=== PATIENT | male | born 1925 | race Caucasian/White ===

== ENCOUNTER → 2016-12-06 | Outpatient (CLI) | payer MEDICARE, OTHER ==
[~2016-12-06] MED LIST: BOOST BREEZE237 ML PO; CENTRUM SILVER1 EAC2 PO; COUMADIN **IA2.5 MG PO; IMODIUM2 MG PO; OMNICEF 300MG300 MG PO; RIVASTIGMINE4.5 MG PO
[2016-12-06 08:22] LABS: INR - (THERAPEUTIC) 2.5 (0.9-1.1); PROTIME 27.8 SECONDS (9.6-11.1)
== END | disposition disaster alternative care site (69) ==
PROVIDERS: Family Medicine
DX: I48.91 Unspecified atrial fibrillation (principal)

== ENCOUNTER → 2017-01-03 | Outpatient (CLI) | payer MEDICARE, OTHER ==
[2017-01-03 08:58] LABS: INR - (THERAPEUTIC) 2.83 (0.92-1.07)
== END ==
PROVIDERS: Family Medicine
DX: I48.91 Unspecified atrial fibrillation (principal)

== ENCOUNTER → 2017-01-31 | Outpatient (CLI) | payer MEDICARE, OTHER ==
[2017-01-31 09:35] LABS: INR - (THERAPEUTIC) 2.5 (0.92-1.07); PROTIME 26.5 SECONDS (9.8-11.4)
== END | disposition disaster alternative care site (69) ==
PROVIDERS: Family Medicine
DX: I48.91 Unspecified atrial fibrillation (principal)

== ENCOUNTER 2017-02-25 08:30 | Emergency (ER) | payer MEDICARE, OTHER ==
--- NOTE | ~2017-02-25 | ER ---
PATIENT'S NAME: WASHINGTON MANDUJANO [facility] AGE: 89 Y [address] ROOM: [place] [address] LOCATION: [facility] ADMIT DATE: 02/25/2017 ER/Outpatient Report DISCHARGE DATE: 02/25/2017 FAMILY PHYSICIAN: Physician, Unknown ATTENDING PHYSICIAN: Usman Macias CHIEF COMPLAINT: Fall. HISTORY OF PRESENT ILLNESS: Mr. Mandujano was at his residence today. He reportedly may have fallen. The aide with him thinks maybe he got tangled up in a comforter. He has been noting some pain in his head and neck and left leg. No other acute findings. The patient does have advanced dementia. He is anticoagulated. He has a history of atrial fibrillation. He has chronic renal failure. No obvious injuries disclosed prior to arrival. PAST MEDICAL HISTORY: Documented on the record and reviewed by me. SOCIAL HISTORY: Documented on the record and reviewed by me. MEDICATIONS: Documented on the record and reviewed by me. ALLERGIES: DOCUMENTED ON THE RECORD AND REVIEWED BY ME. REVIEW OF SYSTEMS: All systems were reviewed and negative as possible based on the patient's mental status and collateral information except as noted in the HPI. PHYSICAL EXAMINATION: VITAL SIGNS: Blood pressure 136/81, pulse 71, respiratory rate 16, temperature 98.5, SpO2 is 97% on room air. Pain 0/10. GENERAL: An age-appropriate male, recumbent on the exam table, in no obvious pain or distress. NEURO: The patient is awake. He is interactive. He is slightly hard of hearing. He answers questions, slightly appropriately occasionally. He is confused. He is able to follow commands in extremities. HEENT: Normocephalic, atraumatic. No palpable defects. Eyes are PERRL. Oropharynx is clear. NECK: Supple. Trachea is midline. PATIENT'S NAME: WASHINGTON MANDUJANO [facility] AGE: 89 Y [address] ROOM: [place] [address] LOCATION: [facility] ADMIT DATE: 02/25/2017 ER/Outpatient Report DISCHARGE DATE: 02/25/2017 FAMILY PHYSICIAN: Physician, Unknown ATTENDING PHYSICIAN: Usman Macias CHEST: Heart is regular rate and rhythm with no obvious murmurs. LUNGS: Clear to auscultation bilateral. No rhonchi, wheezes, or rales. ABDOMEN: Soft, nontender, and nondistended. No rebound or guarding. BACK: Normal to inspection and palpation. No CVA tenderness or spinal tenderness. EXTREMITIES: The left thigh is slightly tender to palpation. The other extremities are unremarkable. SKIN: The skin appears to be clean and intact. No obvious rashes or breakdown. LABORATORY DATA AND X-RAYS: Head CT and C-spine CT unremarkable per Radiology. Labs: CMS with no electrolyte abnormalities. BUN and creatinine of 34 and 2.0 respectively. Troponin is below detectable threshold. CBC without appreciable abnormality other than platelets of 139. INR is 2.44. EKG reveals likely atrial fibrillation. No signs of acute ischemia. No comparison available. Plain films of the pelvis and left femur unremarkable per my review. IMPRESSION: Mechanical fall. EMERGENCY DEPARTMENT COURSE: The patient was seen and evaluated as above. No injuries identified. Renal function at baseline. The patient is to follow up with PCP as needed. We will need to make this appointment. The patient discharged in good condition, back to his living facility. MD MOI TERRY/brooke /[id number] d: 02/25/174 t: 03/11/17 0650, OUTPATIENT REPORT
[~2017-02-25 08:30] MED LIST changes: -BOOST BREEZE237 ML PO; -IMODIUM2 MG PO; -OMNICEF 300MG300 MG PO
[2017-02-25 09:04] LABS: HEMATOCRIT 35.2 % (33.0-50.0); HEMOGLOBIN 11.2 g/dL (11.0-16.0); MCH 29.8 pg (27.0-34.0); MCHC 31.8 gm/dL (32.0-36.5); MCV 93.6 fl (83.0-98.0); MPV 11.7 fl (9.4-12.4); PLATELET COUNT 139 K/uL (150-450); RBC 3.76 M/uL (3.50-5.50); RDW-CV 16.6 % (11.9-14.6); WBC 5.4 K/uL (4.0-11.0)
[2017-02-25 09:12] LABS: INR - (THERAPEUTIC) 2.44 (0.92-1.07); PROTIME 25.9 SECONDS (9.8-11.4); PTT 39 SECONDS (25-32)
[2017-02-25 09:24] LABS: ALBUMIN 3.9 gm/dL (3.5-5.0); ALK PHOS 72 IU/L (33-138); ALT 19 IU/L (12-78); AST 27 IU/L (10-40); BLOOD UREA NITROGEN 34 mg/dL (6-24); CALCIUM 8.7 mg/dL (8.5-10.5); CHLORIDE 109 mMol/L (96-110); CO2 26 mMol/L (22-32); ESTIMATED GFR (MDRD EQUATION) 32; SODIUM 142 mMol/L (135-145); TOTAL BILIRUBIN 0.6 mg/dL (0.0-1.5)
[2017-02-25 10:01] LABS: ABSOLUTE NEUTROPHIL CT (ANC) 2.8 K/uL (1.4-9.0); BANDED NEUTROPHIL # 0.5 K/uL (0.0-0.1); BANDED NEUTROPHILS % 9 %; LYMPHOCYTE # 1.3 K/uL (0.8-4.0); LYMPHOCYTE % 24 %; MONOCYTE # 1.5 K/uL (0.0-1.0); SEGMENTED NEUTROPHIL # 2.3 K/uL (1.4-9.0); SEGMENTED NEUTROPHIL % 42 %
[2017-02-25 10:35] LABS: BILIRUBIN URINE NEGATIVE (NEGATIVE); BLOOD URINE 10 /UL (NEGATIVE); COLOR URINE YELLOW (YELLOW); GLUCOSE URINE NEGATIVE (NEGATIVE); KETONE URINE NEGATIVE (NEGATIVE); LEUKOCYTES URINE NEGATIVE /UL (NEGATIVE); NITRITE URINE NEGATIVE (NEGATIVE); PROTEIN URINE 15 mg/dL (NEGATIVE); TURBIDITY URINE CLEAR (CLEAR); UROBILINOGEN URINE NORMAL (NORMAL)
[2017-02-25 11:04] LABS: BACTERIA URINE RARE (NEGATIVE); EPITHELIAL URINE 0-2 #/HPF (NEGATIVE); MUCUS URINE 1+ (NEGATIVE); WBC URINE 0-2 #/HPF (NEGATIVE)
== END 2017-02-25 10:04 | disposition disaster alternative care site (69) ==
LOC: GACC 08:30
PROVIDERS: Emergency Medicine
DX: M79.652 Pain in left thigh (principal); M54.2 Cervicalgia; R51 Headache; I10 Essential (primary) hypertension; I73.9 Peripheral vascular disease, unspecified; I48.91 Unspecified atrial fibrillation; F02.80 Dementia in other diseases classified elsewhere, unspecified severity, without behavioral disturbance, psychotic disturbance, mood disturbance, and anxiety; G30.9 Alzheimer's disease, unspecified; Z79.01 Long term (current) use of anticoagulants; Z79.899 Other long term (current) drug therapy; Z90.89 Acquired absence of other organs; Z90.49 Acquired absence of other specified parts of digestive tract; Z88.5 Allergy status to narcotic agent

== ENCOUNTER → 2017-02-25 | Outpatient (CLI) | payer MEDICARE, OTHER | END | disposition disaster alternative care site (69) | LOC: GAMB 08:16 | DX: R53.1 Weakness (principal); M54.2 Cervicalgia; M25.562 Pain in left knee; R51 Headache | CPT/HCPCS: A0425; A0429 ==

== ENCOUNTER → 2017-03-13 | Outpatient (CLI) | payer MEDICARE, OTHER ==
[~2017-03-13] MED LIST changes: +BOOST BREEZE237 ML PO; +IMODIUM2 MG PO; +OMNICEF 300MG300 MG PO
[2017-03-13 07:59] LABS: HEMATOCRIT 32.3 % (33.0-50.0); HEMOGLOBIN 10.4 g/dL (11.0-16.0); MCH 30.7 pg (27.0-34.0); MCHC 32.2 gm/dL (32.0-36.5); MCV 95.3 fl (83.0-98.0); MPV 12.2 fl (9.4-12.4); RBC 3.39 M/uL (3.50-5.50); RDW-CV 16.4 % (11.9-14.6); WBC 3.8 K/uL (4.0-11.0)
[2017-03-13 08:00] LABS: PLATELET COUNT 106 K/uL (150-450)
[2017-03-13 08:09] LABS: INR - (THERAPEUTIC) 2.43 (0.92-1.07); PROTIME 25.7 SECONDS (9.8-11.4)
[2017-03-13 08:23] LABS: ALBUMIN 3.5 gm/dL (3.5-5.0); ANION GAP 12.5 (10.0-19.0); CALCIUM 8.2 mg/dL (8.5-10.5); CREATININE 1.6 mg/dL (0.6-1.3); POTASSIUM 4.5 mMol/L (3.7-5.1); TOTAL PROTEIN 6.3 g/dL (6.0-8.4)
[2017-03-13 08:27] LABS: TOTAL BILIRUBIN 0.4 mg/dL (0.0-1.5)
[2017-03-13 08:37] LABS: ABSOLUTE NEUTROPHIL CT (ANC) 2.1 K/uL (1.4-9.0); BANDED NEUTROPHIL # 0.2 K/uL (0.0-0.1); BANDED NEUTROPHILS % 5 %; LYMPHOCYTE # 1.2 K/uL (0.8-4.0); LYMPHOCYTE % 32 %; MONOCYTE # 0.5 K/uL (0.0-1.0); SEGMENTED NEUTROPHIL # 1.9 K/uL (1.4-9.0); SEGMENTED NEUTROPHIL % 49 %
== END | disposition disaster alternative care site (69) ==
PROVIDERS: Family Medicine
DX: I48.91 Unspecified atrial fibrillation (principal)

== ENCOUNTER → 2017-04-11 | Outpatient (CLI) | payer MEDICARE, OTHER ==
[2017-04-11 09:16] LABS: INR - (THERAPEUTIC) 3.46 (0.92-1.07); PROTIME 36.8 SECONDS (9.8-11.4)
== END | disposition disaster alternative care site (69) ==
PROVIDERS: Family Medicine
DX: I48.91 Unspecified atrial fibrillation (principal)

== ENCOUNTER 2017-05-11 13:28 | Inpatient (IN) | payer MEDICARE, OTHER ==
[~2017-05-11] VITALS: Ht 172.7 cm; Wt 56.0 kg
--- NOTE | ~2017-05-11 | CON ---
PATIENT'S NAME: WASHINGTON SOLIS [facility] AGE: 89 Y [address] ROOM: [id number] [place], [place] [address] LOCATION: [facility]ICU ADMIT DATE: 05/11/2017 Consultation DISCHARGE DATE: FAMILY PHYSICIAN: Omar Hicks MD ATTENDING PHYSICIAN: BLANCA BROWNLEE DATE OF CONSULTATION: 05/11/2017 REFERRING PHYSICIAN: LYDIA COLLINS MD HISTORY OF PRESENT ILLNESS: Dr. Leonard has requested that I provide an inpatient consultation on this 89- year-old male, assisted living facility resident, who presented to the [facility] Emergency Room today with a chief complaint of left hip pain after he fell on his left side. The patient has advanced dementia, and is unable to recall the circumstances of the fall. He denies pain elsewhere. He denies history of pre-existing left hip pain. His daughter states that she has noticed no discomfort elsewhere, and that she is not aware of previous left hip pain. His daughter, Spring, is present, and she is his power of real estate attorney. Her cell phone number is [phone]. Her son, Daryl, is an director of physical education in [place]. His cell phone is [phone]. MEDICATIONS ON ADMISSION: 1. Coumadin. 2. Multivitamin. 3. Exelon. 4. Omnicef. 5. Imodium. ALLERGIES: TRAMADOL. ACTIVE MEDICAL PROBLEMS: 1. Atrial fibrillation. 2. Dementia. PHYSICAL EXAMINATION: GENERAL: The patient is alert and confused. He responds to some commands. He is disoriented to place and time. LUNGS: Respiratory rate is 16. Respiratory sounds are slightly coarse. Respirations are nonlabored. EXTREMITIES: There is no tenderness in either upper extremity. There is pain with passive range of motion of the left hip. The left leg is shortened and externally rotated versus the right. There is no tenderness at either knee. There is no pain with passive range of motion of the right hip. There is no peripheral edema in either lower extremity. He is able to actively dorsiflex PATIENT'S NAME: WASHINGTON SOLIS [facility] AGE: 89 Y [address] ROOM: [id number] [place], [place] [address] LOCATION: GICU ADMIT DATE: 05/11/2017 Consultation DISCHARGE DATE: FAMILY PHYSICIAN: Omar Hicks MD ATTENDING PHYSICIAN: BLANCA BROWNLEE and plantar flex his left ankle against gravity. There is good capillary refill at the left toes. RADIOGRAPHS: Left hip radiographs demonstrate what appears to be a basicervical fracture. I have ordered repeat radiographs with traction and internal rotation. These are pending. IMPRESSION: 1. Left hip basicervical-intertrochanteric fracture. 2. Dementia. 3. Atrial fibrillation (presently anticoagulated). PLAN: The patient has been placed at bedrest. Mechanical DVT prophylaxis and incentive spirometry have been initiated. The Internal Medicine team has been consulted for preoperative medical optimization and perioperative medical management. Vitamin K has been administered, and a repeat prothrombin time has been scheduled for tomorrow morning. Provided the pending repeat radiographs confirm a basicervical- intertrochanteric fracture, I have recommended that we proceed with open reduction and internal fixation. The patient's daughter understands that it is conceivable that we will proceed with hemiarthroplasty instead. We have discussed technical aspects of surgery as well as risks and limitations thereof. We have specifically discussed the potential for infection, deep venous thrombosis, pulmonary embolism, decubitus ulcer formation, pneumonia, neurovascular complications, infection, malunion, nonunion, and potential need for further surgery (including the potential need for conversion to hemiarthroplasty). She understands there is an outside chance that we will proceed directly with hemiarthroplasty, under which circumstances there would be a potential for leg length discrepancy and dislocation. Surgery is tentatively scheduled for tomorrow morning, but this is predicated on medical clearance, operating room availability, and adequate reversal of the patient's anticoagulated status. All the patient's daughter's questions and concerns have been answered to her satisfaction. PATIENT'S NAME: WASHINGTON SOLIS [facility] AGE: 89 Y [address] ROOM: [place] [address] LOCATION: [facility] ADMIT DATE: 05/11/2017 Consultation DISCHARGE DATE: FAMILY PHYSICIAN: Omar Hicks MD ATTENDING PHYSICIAN: BLANCA BROWNLEE MD VERENICE CALDERON/brooke /[id number] CC: Landon Leonard MD d: 05/12/17 0123 t: 05/13/17 1320, CONSULTATION REPORT
--- NOTE | ~2017-05-11 | DS ---
PATIENT'S NAME: WASHINGTON MANDUJANO [facility] AGE: 89 Y [address] ROOM: [place] [address] LOCATION: [facility] ADMIT DATE: 05/11/2017 Discharge Summary DISCHARGE DATE: 05/30/2017 FAMILY PHYSICIAN: Omar Hicks MD ATTENDING PHYSICIAN: Danny Martines PRINCIPAL DISCHARGE DIAGNOSIS: Left displaced femoral neck fracture. SECONDARY DIAGNOSES: 1. Dementia, Alzheimer's. 2. Atrial fibrillation, chronic, with episodes of rapid ventricular response. 3. Chronic kidney disease, stage 3 to 4. 4. Benign prostatic hypertrophy with urinary retention and requiring indwelling Treviño at the time of discharge. 5. Hypertension. 6. Acute delirium after morphine. 7. Anorexia. 8. Urinary tract infection with Pseudomonas aeruginosa. 9. Aspiration pneumonia. 10. Hearing impairment. 11. Protein-calorie malnutrition. 12. Hypernatremia. 13. Acute anemia of blood loss following surgery, likely, also anemia of chronic disease. 14. Dysphagia with periods of feedings with Dobbhoff tube. 15. Hypophosphatemia. 16. Congestive heart failure, acute exacerbation. 17. Hyperkalemia. CONSULTATIONS: 1. Dr. Addison, Orthopedics. 2. Cardiology, Dr. Sky, for atrial fibrillation. PROCEDURES: Left hip hemiarthroplasty on 05/13/2017. BRIEF SUMMARY: Mr. Mandujano is an 89-year-old gentleman who was living at a nursing facility when he sustained a ground level fall on the day of admission and hurt his hip and also hit his head. He was initially admitted to Dr. Landon Leonard and then transferred to the Hospitalist Service. On admission, a left hip fracture was identified; CT of the head was negative for acute hematoma or intracranial changes. Dr. Sky was consulted for cardiac clearance preoperatively. At that time, the patient was oriented only to himself. He did complain of hip pain, but not shortness of breath, and PATIENT'S NAME: WASHINGTON MANDUJANO [facility] AGE: 89 Y [address] ROOM: [place] [address] LOCATION: [facility] ADMIT DATE: 05/11/2017 Discharge Summary DISCHARGE DATE: 05/30/2017 FAMILY PHYSICIAN: Omar Hicks MD ATTENDING PHYSICIAN: Danny Martines according to the family, he was not having any paroxysmal nocturnal dyspnea, orthopnea, or leg swelling. He was treated with IV Lasix at prior to surgery. The patient actually tolerated surgery well. His postoperative period was complicated by his dysphagia difficulty getting him to take enough to eat. A Dobbhoff was placed when he became suddenly less able to eat; and around the same time, he started coughing, his urine became very dark. INR was elevated. Urinalysis showed white cells in addition to the red cells and he became febrile. He was started on antibiotics for suspected aspiration pneumonia. Urinalysis and culture positive showed Pseudomonas, which was susceptible to Levaquin, eventually, his antibiotics of Zosyn and Clinda were narrowed to Levaquin, which will cover both. He will complete a course of Levaquin with 1 dose p.o. pending tomorrow after discharge. The patient was agitated with his Dobbhoff tube. Family requested Palliative Care consult and they have chosen to have modified palliative approach with continuing his treatments, but allowing him to eat and so far the patient appears very comfortable with this and the last Speech evaluation did not show any overt signs and symptoms of aspiration with nectar-thick liquid. He will be discharged on nectar-thick liquid and pureed diet. Laboratory data at the time of discharge CBC shows white blood cell count 8, hemoglobin of 8, and platelets 232. Iron is 16, TIBC is 180, and iron saturation is 9. Sodium 148, potassium 5.2, chloride 116, CO2 26, glucose 112, creatinine 2.2, BUN 38, phosphorus is 4.8, albumin 2.6, and eGFR is 26. PT today is 2, ferritin is 504 from the 13th. A repeat urine culture was done on the and is negative at the final. The patient developed urinary retention after his Treviño was first discontinued postoperatively. He did not respond well to Flomax and was started on Cardura. We are going to leave the Treviño in and see if he can have a voiding trial sometime later, according to Dr. Hicks. INSTRUCTIONS AT DISCHARGE: 1. Diet: Pureed with nectar thick liquids with specific feeding instructions in the discharge orders. 2. Activity: Physical therapy, speech therapy, occupational therapy, and they aid pillow between his legs for 6 weeks postop. 3. Follow up with Dr. Hicks to manage his INR and dose his Coumadin. He should have a basic metabolic panel and an INR on the 31 of May. Palliative Care is to follow up with him at [place] and he should see Dr. Addison as needed. Dr. Addison did see him today at the hospital according to the RN. PATIENT'S NAME: WASHINGTON MANDUJANO [facility] AGE: 89 Y [address] ROOM: [address] [address] LOC[facility] ADMIT DATE: 05/11/2017 Discharge Summary DISCHARGE DATE: 05/30/2017 FAMILY PHYSICIAN: Omar Hicks MD ATTENDING PHYSICIAN: Danny Martines MEDICATIONS AT THE TIME OF DISCHARGE: 1. Prevacid 30 mg q.h.s. 2. Tylenol 500 mg q.i.d. 3. Zebeta 2.5 mg p.o. daily. 4. Calcium carbonate 500 mg b.i.d. 5. Vitamin D 400 units b.i.d. 6. Cardura 1 mg at h.s. 7. Ferrous sulfate 325 mg p.o. b.i.d. 8. Lactinex 1 b.i.d. 9. Coumadin as per his INR, he has been on 3 daily here. 10. Multiple vitamin p.o. daily. 11. Bisacodyl rectal suppository p.r.n. constipation. 12. Colace 100 mg p.o. b.i.d. 13. Imodium p.r.n. 14. Milk of mag p.r.n. constipation. 15. Percocet 1 to 2 tabs q.6 p.r.n. 16. Levaquin 750 mg p.o. once on 05/31/2017. CONDITION AT DISCHARGE: Fair. Greater than 30 minutes was spent in the discharge process. MARITZA PLUMMER MD LM/brooke /[id number] d: t: 05/31/17 1109, DISCHARGE SUMMARY
--- NOTE | ~2017-05-11 | HP ---
PATIENT'S NAME: WASHINGTON SOLIS [facility] AGE: 89 Y [address] ROOM: [place] [address] LOCATION: GICU ADMIT DATE: 05/11/2017 History & Physical DISCHARGE DATE: FAMILY PHYSICIAN: Omar Hicks MD ATTENDING PHYSICIAN: BLANCA BROWNLEE DATE OF SERVICE: CHIEF COMPLAINT: Fall leading to left hip fracture. HISTORY OF PRESENT ILLNESS: An 89-year-old gentleman with a past medical history of Alzheimer dementia; chronic kidney disease, stage 3; atrial fibrillation, on long-term anticoagulation; and hypertension, who is a resident of a nursing facility, sustained a ground level fall today after lunch hitting his head as well. He started to experience left hip pain immediately after the fall. He was admitted to the [facility] under Dr. Edward Leonard and imaging was done, which did show left hip fracture. CT scan of the head was also done, which did not reveal any acute hematoma or any acute intracranial changes. Cardiology was consulted for preop clearance as well as for atrial fibrillation and then care was transferred to the hospitalist team. On my encounter, child is acutely delirious, just oriented to himself. On inquiry, he complained of left hip pain, does not complain of any shortness of breath, does not complain of any headache, does not complain of any abdominal pain at this point. Per daughter, in the recent days, he did not complain of any PND, orthopnea, or leg swelling. REVIEW OF SYSTEMS: All other systems reviewed were negative except what is mentioned in the HPI. PAST MEDICAL HISTORY: Alzheimer dementia, hypertension, atrial fibrillation, congestive heart failure, and pancreatitis. MEDICATIONS: Being reconciled right now. ALLERGIES: THE PATIENT IS ALLERGIC TO TRAMADOL. FAMILY HISTORY: There is no family history of premature coronary artery disease. SOCIAL HISTORY: PATIENT'S NAME: WASHINGTON SOLIS [facility] AGE: 89 Y [address] ROOM: [place] [address] LOCATION: [facility] ADMIT DATE: 05/11/2017 History & Physical DISCHARGE DATE: FAMILY PHYSICIAN: Omar Hicks MD ATTENDING PHYSICIAN: BLANCA BROWNLEE Quit smoking long time ago. Resident of a nursing facility. PHYSICAL EXAMINATION: VITAL SIGNS: Vitals were reviewed with pulse in the 100s, blood pressure 148/86, and temperature 98.0. GENERAL: Grossly encephalopathic. Alert and oriented only to himself. HEAD: Superficial bruise on the right eyebrow. Otherwise atraumatic. Eyes nonicteric, no pallor. Oropharynx, moist mucous membranes. CARDIOVASCULAR: Variable S1 and S2, irregular. LUNGS: Bilateral basal crackles. ABDOMEN: Soft, nontender, nondistended. Bowel sounds present. EXTREMITIES: No clubbing, cyanosis, or edema. PSYCHIATRIC: Cannot be assessed at this point. NEURO: Grossly intact. No motor sensory deficit noted. MUSCULOSKELETAL: Left hip point tenderness noted. ENDOCRINE: No thyromegaly or myxedema noted. LABORATORY DATA: Lab work done today in the hospital was significant for hemoglobin of 10, BUN 29, creatinine of 2.0. Phosphorus was 1.9. INR was found to be 2.5. EGFR 29. ASSESSMENT: 1. Left hip fracture. 2. Atrial fibrillation with rapid ventricular rate. 3. Congestive heart failure, acute exacerbation. 4. Alzheimer dementia. 5. Acute delirium on dementia. 6. Hypophosphatemia. PLAN: The patient has been admitted. Cardiology has been consulted for atrial fibrillation and preop evaluation. We will defer that to them. They have started Lasix and Cardizem drip. Lexiscan has been ordered for the morning. We will keep eye on the electrolytes during night. Pain control per Orthopedics. I will use some Seroquel to decrease his encephalopathy. The patient is DNR, DNI. Vitamin K has been started by the Cardiology. MD DEANDRA GAVIRIA/brooke PATIENT'S NAME: WASHINGTON SOLIS [facility] AGE: 89 Y [address] ROOM: [id number] [place] [address] LOCATION: [facility] ADMIT DATE: 05/11/2017 History & Physical DISCHARGE DATE: FAMILY PHYSICIAN: Omar Hicks MD ATTENDING PHYSICIAN: BLANCA BROWNLEE /[id number] T: [id number] HISTORY & PHYSICAL
--- NOTE | ~2017-05-11 | CON ---
PATIENT'S NAME: WASHINGTON MANDUJANO [facility] AGE: 89 Y [address] ROOM: [place] [address] LOCATION: GICU ADMIT DATE: 05/11/2017 Consultation DISCHARGE DATE: FAMILY PHYSICIAN: Omar Hicks MD ATTENDING PHYSICIAN: BLANCA BROWNLEE DATE OF CONSULTATION: 05/11/2017 REFERRING PHYSICIAN: LYDIA COLLINS MD Dear Dr. Leonard: Thank you for asking me to see Mr. Mandujano who is an 89-year-old male patient who had an accidental fall at [facility], which is assisted living facility. This happened around lunch time, and he had left hip pain and was brought to the emergency room. I am asked to see regarding cardiac clearance. His chest x-ray shows some congestive heart failure. His INR is elevated because of treatment with Coumadin for paroxysmal atrial fibrillation. The patient gets physical therapy 1-2 times a week for the past month for mostly balance. He walks with a walker and walks at the most about 50 feet or less. He has significant dementia and his daughter is the one he gives most of the history. There has never been any symptoms with chest pains or shortness of breath. He has been in functional class 2-3 with no paroxysmal nocturnal dyspnea or orthopnea. There has been no lightheadedness, dizziness, syncope, presyncope, or palpitation. He has some ankle swelling. There is no prior history of hypertension or diabetes. His cholesterol is not known to be elevated. He has quit smoking a number of years ago and there is no family history of premature coronary artery disease. There is no prior history of TN or angina or nitroglycerin use. He denies rheumatic fever, heart murmur, heart failure, until now. He has history of paroxysmal atrial fibrillation, for which he is on Coumadin therapy. MEDICATIONS: Cefdinir 300 mg twice a day, Boost liquid, loperamide 2 mg as needed, multivitamin, Exelon cap 4.5 mg a day, and warfarin. ALLERGIES: TRAMADOL. PAST MEDICAL HISTORY: PATIENT'S NAME: WASHINGTON MANDUJANO [facility] AGE: 89 Y [address] ROOM: [place] [address] LOCATION: GICU ADMIT DATE: 05/11/2017 Consultation DISCHARGE DATE: FAMILY PHYSICIAN: Omar Hicks MD ATTENDING PHYSICIAN: BLANCA BROWNLEE 1. Dementia. 2. Appendectomy. 3. Cataract surgery. 4. History of pancreatitis 10 years ago. 5. ERCP x4. 6. Spinal fracture years back. SOCIAL HISTORY: The patient lives at [facility]. He denies abusing alcohol. His appetite has been reasonable. His weight is down by 10 pounds in the last year. Sleep is fair. FAMILY HISTORY: No premature coronary artery disease. REVIEW OF SYSTEMS: A 12-point review of systems revealed the following positives: 1. TIA which is questionable. 2. History of cataract surgery. 3. Detached retina. 4. Hardness of hearing. 5. Kidney problem, the nature of which is unclear. 6. Benign prostatic hypertrophy versus cancer. PHYSICAL EXAMINATION: VITAL SIGNS: On examination, his blood pressure is 180/80, heart rate is in the 60s and irregular, respirations 18, afebrile. HEENT: Normal. NECK: Supple. No JVD, thyromegaly, lymphadenopathy, or carotid bruit. HEART: PMI is not well located. First and second heart sounds are irregular. There are no added sounds or murmurs. CHEST: Clear to auscultation other than basal crackles. ABDOMEN: Soft and nontender. EXTREMITIES: Reveal no edema. CENTRAL NERVOUS SYSTEM: Intact. ASSESSMENT: 1. Left hip fracture by accidental fall for cardiac clearance. 2. The patient currently going to proceed with an urgent intermediate risk surgery. He is asymptomatic from the heart standpoint, but his functional capacity is less than 4 METS. RECOMMENDATION: 1. We will give him some IV Lasix. 2. We will try to reverse his Coumadin level. PATIENT'S NAME: WASHINGTON MANDUJANO [facility] AGE: 89 Y [address] ROOM: [place] [address] LOCATION: [facility] ADMIT DATE: 05/11/2017 Consultation DISCHARGE DATE: FAMILY PHYSICIAN: Omar Hicks MD ATTENDING PHYSICIAN: BLANCA BROWNLEE 3. Rule out myocardial infarction. 4. Echocardiogram. 5. Lexiscan Cardiolite study first thing in the morning and follow up after that. Hopefully, the results will be available before he goes in for his surgery. Again, I appreciate this opportunity to participate in the care of Mr. Mandujano. MD SHAINA FRANCO/brooke /[id number] d: 05/12/17 0020 t: 05/29/17 1726, CONSULTATION REPORT
--- NOTE | ~2017-05-11 | ER ---
[facility] AGE: 89 Y [address] ROOM: [place] [address] LOCATION: [facility] ADMIT DATE: 05/11/2017 ER/Outpatient Report DISCHARGE DATE: FAMILY PHYSICIAN: Omar Hicks MD ATTENDING PHYSICIAN: BLANCA BROWNLEE TIME OF ARRIVAL: 1328 hours. TIME OF EVALUATION: 1330 hours. CHIEF COMPLAINT: Left hip pain. HISTORY OF PRESENT ILLNESS: The patient is an 89-year-old male who presents to the emergency department today with chief complaint of left hip pain. The patient is a half-way resident. He does have a history of advanced dementia. He was getting up from the table when he lost his balance and fell, landed on his left hip. He has been unable to walk since. It is a sharp pain, worse with movement, currently 3/10 in severity. There is no reported head injury or loss of consciousness. PAST MEDICAL HISTORY: Chronic atrial fibrillation, peripheral vascular disease, hard of hearing, advanced dementia, stage III chronic renal disease. PAST SURGICAL HISTORY: Tonsils and adenoids, cholecystectomy, SOCIAL HISTORY: The patient denies any tobacco, alcohol, or illicit drug use. ALLERGIES: TRAMADOL. MEDICATIONS: Please see list. PRIMARY CARE DOCTOR: Dr. Hicks. REVIEW OF SYSTEMS: All systems are reviewed by myself and negative with the exception of those PAT[facility]'S [facility]: [facility] AGE: 89 Y [address] ROOM: [place] [address] LOCATION: [facility] ADMIT DATE: 05/11/2017 ER/Outpatient Report DISCHARGE DATE: FAMILY PHYSICIAN: Omar Hicks MD ATTENDING PHYSICIAN: BLANCA BROWNLEE discussed in HPI and past medical history. PHYSICAL EXAMINATION: VITAL SIGNS: Weight 57.8 kg, blood pressure 138/70, pulse 74, respiratory rate 18, temperature 98.3, oxygen saturation 99% on room air. GENERAL: The patient is an 89-year-old male, who appears stated age, in acute discomfort secondary to left hip pain. HEENT. Head: Normocephalic, atraumatic. Pupils are equal, round, and reactive to light. NECK: Supple. There is no nuchal rigidity. CARDIOVASCULAR: Regular rate and rhythm. No murmurs, rubs, or gallops. LUNGS: Clear to auscultation bilaterally. No wheezes, rales, or rhonchi. ABDOMEN: Soft, nontender, and nondistended. No rebound, rigidity, or guarding. MUSCULOSKELETAL: The patient has tenderness to palpation of the left hip. He is neurovascularly intact distally with 2/4 DP and PT pulses. Sensation is intact. NEUROLOGICAL: GCS 14. He is alert and oriented to person, not place, not time, not situation. SKIN: The patient does have a superficial skin tear to the left elbow. DIAGNOSTIC DATA: Labs and x-rays are obtained. An x-ray of the left hip is obtained, does appear to be a fracture through the intertrochanteric fracture of the left hip. CT scan of the brain is obtained, shows atrophy. C-spine shows no acute fracture. There are degenerative changes, which are stable. CT scan of the pelvis shows proximal left comminuted femoral base of the neck fracture. CBC is unremarkable except for hemoglobin 10.2, hematocrit 31.5, PTT is 40, PT is 27.1, INR is 2.56. CMP is unremarkable except for BUN 29, creatinine 2.0, phosphorus 1.9. IMPRESSION: 1. Ground-level fall with left femoral neck fracture, comminuted, closed. 2. Advanced dementia. 3. Chronic atrial fibrillation, on chronic anticoagulation. 4. Initial visit. EMERGENCY DEPARTMENT COURSE: The patient was brought back to the examination room. Seen and evaluated by myself. An IV is established. Laboratory analysis and imaging are obtained as described above. The patient is given multiple aliquots of fentanyl 25 mcg IV for pain. I have discussed the case with Dr. Wiggins who is on-call for trauma call. He has requested the CT imaging of the left hip. This is obtained. I have discussed the case with Dr. Landon Leonard, who is on-call for the patient's primary care doctor, Dr. Hicks. He has requested Cardiology PATIENT'S NAME: WASHINGTON SOLIS [facility] AGE: 89 Y [address] ROOM: [address] [address] LOCATION: [facility] ADMIT DATE: 05/11/2017 ER/Outpatient Report DISCHARGE DATE: FAMILY PHYSICIAN: Omar Hicks MD ATTENDING PHYSICIAN: BLANCA BROWNLEE. I have contacted Dr. Sky with Cardiology. He will see and evaluate the patient prior to surgery. DISPOSITION: The patient is admitted under the care of Dr. Horacio Almaguer in stable condition. DO JHON KAUFMAN/brooke /[id number] d: 05/11/172230 t: 05/12/17 0830, OUTPATIENT REPORT
--- NOTE | ~2017-05-11 | OR ---
PATIENT'S NAME: [facility] AGE: 89 Y [address] ROOM: [place] [address] LOCATION: [facility] ADMIT DATE: 05/11/2017 OR/Procedure Report DISCHARGE DATE: FAMILY PHYSICIAN: Omar Hicks MD ATTENDING PHYSICIAN: BLANCA BROWNLEE SURGEON: Pete Addison MD ORDER DETAILER: Temo Romero PA-C. DATE OF PROCEDURE: 05/13/2017 PREOPERATIVE DIAGNOSIS: Left displaced femoral neck fracture with extension into the sub-trochanter. POSTOPERATIVE DIAGNOSIS: Left displaced femoral neck fracture with extension into the sub-trochanter. PROCEDURE: Left hip hemiarthroplasty. ANESTHESIA: General anesthesia. FLUIDS: Crystalloids 1200 mL. ESTIMATED BLOOD LOSS: 60 mL. SPECIMEN: None. COMPLICATIONS: None. DISPOSITION: Stable in PACU. COUNTS: All counts correct. IMPLANTS: Include Mallorie Accolade II, size 7, standard offset stem with size standard 28 mm plus 0 femoral head and size 58 bipolar component. INDICATION: Mr. Mandujano is a pleasant 89-year-old gentleman who sustained a fall and the noted fracture above. The risks, benefits, and alternatives of pursuing a surgical intervention were discussed with the patient in detail. Anesthesia was consulted for their perioperative evaluation of the patient. The patient and the patient's daughter elected to proceed with surgery. I marked the patient's left hip indicating the correct surgical site. DESCRIPTION OF PROCEDURE: The patient was brought from the holding area to the operating room. A time-out was performed. General endotracheal anesthesia was administered. The patient was positioned and prepped and draped in a sterile fashion. PATIENT'S NAME: [facility] AGE: 89 Y [address] ROOM: [place] [address] LOCATION: [facility] ADMIT DATE: 05/11/2017 OR/Procedure Report DISCHARGE DATE: FAMILY PHYSICIAN: Omar Hicks MD ATTENDING PHYSICIAN: BLANCA BROWNLEE I turned my attention to the left hip. A time-out was performed. Perioperative antibiotics were administered for prophylaxis. Tranexamic acid was administered to assist with blood loss. I began with a posterior incision on the left hip. A 15 blade knife was used through the skin, subcutaneous tissue, fascia, down to bone. I excised the greater trochanteric bursa. I used a Bovie electrocautery device to remove the short external rotators and posterior capsule from the hip and tagged it with an Ethibond suture. I then used an oscillating saw to make my femoral neck cut. I then used a corkscrew to remove the femoral head and measured it. I then broached up to an adequate size to fill the femoral canal. I removed the trial component tree and installed the final bipolar component in the femoral canal, placed femoral head and bipolar stem. The hip was then reduced. It was brought through range of motion and deemed stable. I achieved full extension and hip flexion to 120 degrees and approximately 40 degrees of internal rotation prior to surgical dislocation. I assessed the limb length and found it to be stable and out to length. The wound was then copiously irrigated with normal sterile saline solution. The short external rotators were reattached to the posterior aspect of the greater trochanter through bony tunnels. The hip was closed in layers using a StrataFix suture followed by 0 Vicryl and 2-0 Vicryl suture to approximate the skin. A Prineo was used to approximate the skin. A Mepilex dressing was placed over the hip. The patient was then transferred from the operating room table onto the stretcher and extubated. An abduction pillow was placed between the legs. He was brought to recovery room in stable condition. There were no intraoperative complications noted. Of note, my PA, Temo Romero PA-C, played an integral role in the intraoperative care of this patient. This included preoperative positioning, intraoperative expert retraction, and closing and dressing functions. IMPRESSION: The patient is status post the noted procedures above. PLAN: The patient will be weightbearing as tolerated with hip flex precautions on the left lower extremity to 90 degrees. Postoperative pain control will be in the form of Percocet and IV morphine as needed for pain. DVT prophylaxis will be in the form of Lovenox. The Hospitalist Team will continue to manage the patient's concomitant medical comorbidities. Physical Therapy and Occupational Therapy will be consulted for early ambulation and PATIENT'S NAME: [facility] AGE: 89 Y [address] ROOM: [place] [address] LOCATION: [facility] ADMIT DATE: 05/11/2017 OR/Procedure Report DISCHARGE DATE: FAMILY PHYSICIAN: Omar Hicks MD ATTENDING PHYSICIAN: BLANCA BROWNLEE prevention of deconditioning. We will continue to monitor the patient closely in the postoperative period. Postop x-ray of the left hip will be obtained in the PACU. MD VIKTORIA YORK/brooke /[id number] d: 05/13/172200 t: 05/14/17 08, OPERATIVE SUMMARY
--- NOTE | ~2017-05-11 | ESTC ---
Cardiac Perfusion Imaging Demographics Patient Name IRMA Chase Gender Male Patient Number [id number] Race Visit Number [id number] Ethnicity Corporate ID Room Number G6330 Accession Number [id number] Height 68 inches Date of 1925 Weight 127 pounds MD Fabiola Delgado PICKLE PUMPER Interpreting Asya Romero Date of study 05/12/2017 Physician Supervising /MLP Asya Romero NM Technologist Page Scales MD Ordering Physician Asya Romero Stress MD general maintenance technician Stress ECG Reading Asya Romero Nurse Jackie Flores RN Physician Procedure Procedure Type: Nuclear Stress Test:Pharmacological, Lexiscan, Cardiolite Stress Test Procedure Start time: 05/12/2017 10:30 Indications: Pre surgical clearance and CHF. Conclusions Summary Lexiscan cardiolite with no EKG changes of ischemia. Normal perfusion imaging. LVEF: 78%. Normal WM. Stress Protocols Resting ECG A fib with variable control.HR in the 90s at the time of stress. Pre-stress physical exam: More sleepy. Predicted HR: 131 bpm ECG Findings No ECG changes suggestive of ischemia. Arrhythmias No new rhythm abnormality. Symptoms No symptoms with Lexiscan infusion. Stress Interpretation Lexiscan cardiolite with normal hemodynamic response with no symptoms. No EKG changes of ischemia. No new arrythmias. Imaging Results High risk findings Summed scores - Summed stress score: 19 - Summed rest score: 6 - Summed difference score: 13 Stress ejection Ejection fraction:77 % EDV :26 ml ESV :6 ml Stroke volume :20 ml LV mass :54 gr LV size:Normal Normal LV function Imaging Protocols Rest Stress Isotope:Tc99m Sestamibi IV Isotope dose:30.7 mCi Isotope dose:10.1 mCi Date:05/12/2017 11:38 Date:05/12/2017 08:39 Technique: SPECT Technique: Gated Supine SPECT Supine IV remains in place after procedure. Scan Time:45-60 minutes post Scan Time:45-60 minutes post injection injection Procedure Medications - Regadenoson (Lexiscan) 0.4 mg IV over 10-15 sec. I.V. 0.4 mg. Medications administered per verbal order and read back to physician prior to administration. Medical History Admission Data Admission date: 05/11/2017 Admission Time: 15:20 Hospital Status: Inpatient. Signatures dtt: Heather Sky dtd: 05/12/17 1030 Physician Self Edit
--- NOTE | ~2017-05-11 | ECHO ---
Transthoracic Echocardiography Report (TTE) Demographics Patient Name WASHINGTON SOLIS Date of Study 05/12/2017 Patient Number [id number] Visit Number [id number] Date of 1925 Room Number G6230 Gender Male Number Age 89 year(s) Referring Asya Romero Survey Cad Technician Clayton Freeman RVT Physician MD Fabiola Delgado CHECKER IN Physician Interpreting Asya Romero Final Canoe Inspector Physician Supervising Ordering Asya Romero MD/MLP Physician Nurse Stress Pilates Instructor Conclusions Summary Definity images are 76-85. Technically difficult exam. The estimated left ventricular ejection fraction is 55%. Mild to moderate concentric left ventricular hypertrophy with normal internal dimensions and WM. Mild mitral annular calcification. Trivial mitral regurgitation by color Doppler. The aortic valve was not well imaged. The aortic valve is mildly sclerotic. Mild tricuspid regurgitation by color Doppler. Trivial pulmonic valve regurgitation by color Doppler. Possible trivial pericardial effusion. Procedure Type of Study TTE procedure:2D Echocardiogram, Echo with Contrast. Procedure Date Date: 05/12/2017 Start: 10:56 AM Study Location: Echo Lab Technical Quality: Poor visualization due to patient immobility. Indications:CHF. Appropriate Use Criteria: 9 Patient Status: Routine HR: 106 bpm BP: 123/63 mmHg M-Mode/2D Measurements LV Diastolic Dimension: 3 cm LV Systolic Dimension: 2.09 cm LV Septum Diastolic: 1.42 cm LV PW Diastolic: 1.42 cm AO Root Dimension: 2.7 cm Cardiac Output: 7.26 l/min AV Cusp Separation: 1.9 cm RV Diastolic Dimension: 2.22 cm LVOT: 2 cm LVOT VTI: 21.8 cm RV Base: 1.69 cm LV Stroke volume: 68.45 ml RV Length: 5.21 cm TAPSE: 2.1 cm TDI-S': 18.3 cm/s Doppler Measurements AV Peak Velocity: 1.43 m/s MV Peak E-Wave: 0.5 m/s AV Peak Gradient: 8.18 mmHg MV Peak A-Wave: 0.97 m/s AV Mean Gradient: 4 mmHg MV E/A Ratio: 0.52 LVOT Peak Velocity: 1.33 m/s TR Velocity:2.42 m/s PV Peak Velocity: 0.86 m/s TR Gradient:23.43 mmHg PV Peak Gradient: 2.94 mmHg A' Septal Velocity: 0.13 m/s E' Septal Velocity: 0.06 m/s A' Lateral Velocity: 0.16 m/s E' Lateral Velocity: 0.06 m/s Findings Left Ventricle Mild to moderate concentric left ventricular hypertrophy with normal internal dimensions,EF and WM. Right Ventricle Normal right ventricle structure and function. Left Atrium Normal left atrial size. LA volume not measured. Right Atrium Normal right atrial size. IVC not visualized due to poor subcostal window. Mitral Valve Mild mitral annular calcification. Trivial mitral regurgitation by color Doppler. Aortic Valve The aortic valve was not well imaged. The aortic valve is mildly sclerotic. Tricuspid Valve Mild tricuspid regurgitation by color Doppler. Pulmonic Valve Trivial pulmonic valve regurgitation by color Doppler. Pericardial Effusion Possible trivial pericardial effusion. Miscellaneous Visualized portions of the aortic root and ascending aorta appear normal in size. Pleural Effusion No evidence of pleural effusion. Contractility Score LV regional wall motion:(0-Non visualized 1-Normal 2-Hypokinesis 3-Akinesis 4-Dyskinesis 5-Aneurysm) Signature dtt: Heather kSy dtd: 05/12/17 1056 Physician Self Edit
[~2017-05-11 13:28] MED LIST changes: -BOOST BREEZE237 ML PO; -IMODIUM2 MG PO; -OMNICEF 300MG300 MG PO
[2017-05-11 14:01] LABS: HEMATOCRIT 31.5 % (33.0-50.0); HEMOGLOBIN 10.2 g/dL (11.0-16.0); MCH 30.1 pg (27.0-34.0); MCHC 32.4 gm/dL (32.0-36.5); MCV 92.9 fl (83.0-98.0); MPV 10.9 fl (9.4-12.4); PLATELET COUNT 181 K/uL (150-450); RBC 3.39 M/uL (3.50-5.50); RDW-CV 14.9 % (11.9-14.6); WBC 7.3 K/uL (4.0-11.0)
[2017-05-11 14:08] LABS: PTT 40 SECONDS (25-32)
[2017-05-11 14:10] LABS: INR - (THERAPEUTIC) 2.56 (0.92-1.07); PROTIME 27.1 SECONDS (9.8-11.4)
[2017-05-11 14:12] LABS: ALBUMIN 3.5 gm/dL (3.5-5.0); ANION GAP 11.9 (10.0-19.0); CALCIUM 8.2 mg/dL (8.5-10.5); PHOSPHORUS 1.9 mg/dL (2.5-4.9); POTASSIUM 3.9 mMol/L (3.7-5.1)
[2017-05-11 14:49] LABS: ABSOLUTE NEUTROPHIL CT (ANC) 4.6 K/uL (1.4-9.0); BANDED NEUTROPHIL # 0.4 K/uL (0.0-0.1); BANDED NEUTROPHILS % 6 %; LYMPHOCYTE # 0.9 K/uL (0.8-4.0); LYMPHOCYTE % 13 %; MONOCYTE # 1.7 K/uL (0.0-1.0); SEGMENTED NEUTROPHIL # 4.2 K/uL (1.4-9.0); SEGMENTED NEUTROPHIL % 57 %
[2017-05-11] MEDS ORDERED: COUMADIN **IA2.5 MG PO (17:42)
[2017-05-11] MEDS ORDERED: OMNICEF 300MG300 MG PO (17:43)
[2017-05-11] MEDS ORDERED: IMODIUM2 MG PO (17:47)
[2017-05-11] MEDS ORDERED: BOOST BREEZE237 ML PO (17:51)
[2017-05-12 05:56] LABS: HEMATOCRIT 27.6 % (33.0-50.0); HEMOGLOBIN 9.1 g/dL (11.0-16.0); MCH 30.3 pg (27.0-34.0); MPV 11.1 fl (9.4-12.4); RDW-CV 14.9 % (11.9-14.6); WBC 10.3 K/uL (4.0-11.0)
[2017-05-12 05:57] LABS: PLATELET COUNT 126 K/uL (150-450)
[2017-05-12 06:07] LABS: INR - (THERAPEUTIC) 3.32 (0.92-1.07); PROTIME 35.3 SECONDS (9.8-11.4)
[2017-05-12 06:09] LABS: ANION GAP 11.7 (10.0-19.0); CREATININE 1.9 mg/dL (0.6-1.3); POTASSIUM 3.7 mMol/L (3.7-5.1)
[2017-05-12 06:26] LABS: ABSOLUTE NEUTROPHIL CT (ANC) 6.2 K/uL (1.4-9.0); LYMPHOCYTE # 1.2 K/uL (0.8-4.0); LYMPHOCYTE % 12 %; MONOCYTE # 2.9 K/uL (0.0-1.0); SEGMENTED NEUTROPHIL # 6.2 K/uL (1.4-9.0); SEGMENTED NEUTROPHIL % 60 %
[2017-05-13 05:09] LABS: INR - (THERAPEUTIC) 1.68 (0.92-1.07); PROTIME 17.7 SECONDS (9.8-11.4)
[2017-05-13 05:13] LABS: ALBUMIN 3.2 gm/dL (3.5-5.0); ANION GAP 12.6 (10.0-19.0); CALCIUM 8.2 mg/dL (8.5-10.5); MAGNESIUM 2.1 mg/dL (1.8-2.6); PHOSPHORUS 2.5 mg/dL (2.5-4.9); POTASSIUM 3.6 mMol/L (3.7-5.1)
[2017-05-14 03:51] LABS: ALBUMIN 2.8 gm/dL (3.5-5.0); CALCIUM 7.9 mg/dL (8.5-10.5); MAGNESIUM 2.3 mg/dL (1.8-2.6); PHOSPHORUS 2.3 mg/dL (2.5-4.9); POTASSIUM 4.1 mMol/L (3.7-5.1)
[2017-05-14 03:52] LABS: ANION GAP 13.1 (10.0-19.0)
[2017-05-14 04:00] LABS: PROTIME 13.4 SECONDS (9.8-11.4)
[2017-05-14 04:09] LABS: INR - (THERAPEUTIC) 1.27 (0.92-1.07)
[2017-05-15 08:10] LABS: ALBUMIN 2.5 gm/dL (3.5-5.0); CALCIUM 7.9 mg/dL (8.5-10.5); MAGNESIUM 2.3 mg/dL (1.8-2.6); POTASSIUM 3.9 mMol/L (3.7-5.1)
[2017-05-15 08:12] LABS: INR - (THERAPEUTIC) 2.01 (0.92-1.07); PROTIME 21.3 SECONDS (9.8-11.4)
[2017-05-15 08:18] LABS: ANION GAP 8.9 (10.0-19.0); PHOSPHORUS 1.9 mg/dL (2.5-4.9)
[2017-05-16 05:28] LABS: HEMATOCRIT 26.1 % (33.0-50.0); HEMOGLOBIN 8.3 g/dL (11.0-16.0); MCH 29.7 pg (27.0-34.0); MCHC 31.8 gm/dL (32.0-36.5); MCV 93.5 fl (83.0-98.0); MPV 11.2 fl (9.4-12.4); RBC 2.79 M/uL (3.50-5.50); RDW-CV 15.6 % (11.9-14.6); WBC 7.5 K/uL (4.0-11.0)
[2017-05-16 05:31] LABS: PLATELET COUNT 169 K/uL (150-450)
[2017-05-16 05:34] LABS: INR - (THERAPEUTIC) 3.32 (0.92-1.07); PROTIME 35.3 SECONDS (9.8-11.4)
[2017-05-16 05:45] LABS: ALBUMIN 2.6 gm/dL (3.5-5.0); ANION GAP 11.7 (10.0-19.0); CREATININE 1.6 mg/dL (0.6-1.3); MAGNESIUM 2.4 mg/dL (1.8-2.6); PHOSPHORUS 3.1 mg/dL (2.5-4.9); POTASSIUM 4.7 mMol/L (3.7-5.1)
[2017-05-16 05:55] LABS: BANDED NEUTROPHIL # 1.1 K/uL (0.0-0.1); BANDED NEUTROPHILS % 15 %; LYMPHOCYTE # 0.6 K/uL (0.8-4.0); LYMPHOCYTE % 8 %; MONOCYTE # 1.9 K/uL (0.0-1.0); SEGMENTED NEUTROPHIL # 3.9 K/uL (1.4-9.0); SEGMENTED NEUTROPHIL % 52 %
[2017-05-17 06:03] LABS: ALBUMIN 2.5 gm/dL (3.5-5.0); CALCIUM 7.8 mg/dL (8.5-10.5); CREATININE 1.4 mg/dL (0.6-1.3); MAGNESIUM 2.3 mg/dL (1.8-2.6); POTASSIUM 4.1 mMol/L (3.7-5.1)
[2017-05-17 06:07] LABS: ANION GAP 12.1 (10.0-19.0); PHOSPHORUS 1.4 mg/dL (2.5-4.9)
[2017-05-17 06:16] LABS: PROTIME 60.3 SECONDS (9.8-11.4)
[2017-05-17 06:18] LABS: INR - (THERAPEUTIC) 5.64 (0.92-1.07)
[2017-05-18 06:29] LABS: PROTIME 64.9 SECONDS (9.8-11.4)
[2017-05-18 06:35] LABS: ALBUMIN 2.7 gm/dL (3.5-5.0); ANION GAP 11.4 (10.0-19.0); CALCIUM 8.1 mg/dL (8.5-10.5); CREATININE 1.4 mg/dL (0.6-1.3); MAGNESIUM 2.4 mg/dL (1.8-2.6); PHOSPHORUS 3.4 mg/dL (2.5-4.9); POTASSIUM 4.4 mMol/L (3.7-5.1)
[2017-05-18 06:40] LABS: INR - (THERAPEUTIC) 6.07 (0.92-1.07)
[2017-05-19 00:54] LABS: BILIRUBIN URINE NEGATIVE (NEGATIVE); BLOOD URINE 250 /UL (NEGATIVE); COLOR URINE YELLOW (YELLOW); GLUCOSE URINE NEGATIVE (NEGATIVE); KETONE URINE NEGATIVE (NEGATIVE); LEUKOCYTES URINE 500 /UL (NEGATIVE); NITRITE URINE POSITIVE (NEGATIVE); PROTEIN URINE 30 mg/dL (NEGATIVE); TURBIDITY URINE 2+ (CLEAR); UROBILINOGEN URINE NORMAL (NORMAL)
[2017-05-19 01:02] LABS: RBC URINE 50-100 #/HPF (NEGATIVE); WBC CLUMPS URINE MODERATE (NEGATIVE); WBC URINE 50-100 #/HPF (NEGATIVE)
[2017-05-19 01:03] LABS: BACTERIA URINE MODERATE (NEGATIVE); EPITHELIAL URINE NEGATIVE #/HPF (NEGATIVE)
[2017-05-19 01:04] LABS: HYALINE CAST URINE 0-2 #/LPF (NEGATIVE)
[2017-05-19 05:57] LABS: HEMATOCRIT 26.6 % (33.0-50.0); HEMOGLOBIN 8.7 g/dL (11.0-16.0); MCH 30.9 pg (27.0-34.0); MCHC 32.7 gm/dL (32.0-36.5); MCV 94.3 fl (83.0-98.0); MPV 10.9 fl (9.4-12.4); RBC 2.82 M/uL (3.50-5.50); RDW-CV 15.6 % (11.9-14.6)
[2017-05-19 05:58] LABS: PLATELET COUNT 275 K/uL (150-450); WBC 24.4 K/uL (4.0-11.0)
[2017-05-19 06:09] LABS: PROTIME 13.1 SECONDS (9.8-11.4)
[2017-05-19 06:10] LABS: ALBUMIN 2.5 gm/dL (3.5-5.0); CALCIUM 7.9 mg/dL (8.5-10.5); CREATININE 1.8 mg/dL (0.6-1.3); INR - (THERAPEUTIC) 1.24 (0.92-1.07); POTASSIUM 3.9 mMol/L (3.7-5.1); TOTAL PROTEIN 5.9 g/dL (6.0-8.4)
[2017-05-19 06:14] LABS: ANION GAP 10.9 (10.0-19.0); TOTAL BILIRUBIN 0.6 mg/dL (0.0-1.5)
[2017-05-19 06:19] LABS: ALBUMIN 2.5 gm/dL (3.5-5.0); ANION GAP 11.9 (10.0-19.0); CREATININE 1.8 mg/dL (0.6-1.3); MAGNESIUM 2.3 mg/dL (1.8-2.6); PHOSPHORUS 2.7 mg/dL (2.5-4.9); POTASSIUM 3.9 mMol/L (3.7-5.1)
[2017-05-19 07:16] LABS: ABSOLUTE NEUTROPHIL CT (ANC) 18.1 K/uL (1.4-9.0); BANDED NEUTROPHIL # 0.2 K/uL (0.0-0.1); BANDED NEUTROPHILS % 1 %; SEGMENTED NEUTROPHIL # 17.8 K/uL (1.4-9.0); SEGMENTED NEUTROPHIL % 73 %
[2017-05-19 07:17] LABS: LYMPHOCYTE # 1.5 K/uL (0.8-4.0); LYMPHOCYTE % 6 %; MONOCYTE # 4.9 K/uL (0.0-1.0)
[2017-05-20 06:25] LABS: HEMATOCRIT 23.5 % (33.0-50.0); MCH 29.9 pg (27.0-34.0); MCHC 31.1 gm/dL (32.0-36.5); MCV 96.3 fl (83.0-98.0); PLATELET COUNT 227 K/uL (150-450); RBC 2.44 M/uL (3.50-5.50); RDW-CV 15.7 % (11.9-14.6); WBC 13.4 K/uL (4.0-11.0)
[2017-05-20 06:26] LABS: HEMOGLOBIN 7.3 g/dL (11.0-16.0)
[2017-05-20 06:37] LABS: INR - (THERAPEUTIC) 1.43 (0.92-1.07); PROTIME 15.1 SECONDS (9.8-11.4)
[2017-05-20 06:43] LABS: ALBUMIN 2.3 gm/dL (3.5-5.0); CALCIUM 7.8 mg/dL (8.5-10.5); CREATININE 1.8 mg/dL (0.6-1.3); PHOSPHORUS 2.7 mg/dL (2.5-4.9)
[2017-05-20 07:15] LABS: ABSOLUTE NEUTROPHIL CT (ANC) 10.5 K/uL (1.4-9.0); BANDED NEUTROPHIL # 0.4 K/uL (0.0-0.1); BANDED NEUTROPHILS % 3 %; LYMPHOCYTE # 0.5 K/uL (0.8-4.0); LYMPHOCYTE % 4 %; MONOCYTE # 2.4 K/uL (0.0-1.0); SEGMENTED NEUTROPHIL # 10.1 K/uL (1.4-9.0); SEGMENTED NEUTROPHIL % 75 %
[2017-05-21 04:32] LABS: HEMATOCRIT 22.2 % (33.0-50.0); MCH 30.4 pg (27.0-34.0); MCHC 31.5 gm/dL (32.0-36.5); MCV 96.5 fl (83.0-98.0); MPV 11.4 fl (9.4-12.4); PLATELET COUNT 232 K/uL (150-450); RDW-CV 15.6 % (11.9-14.6); WBC 8.8 K/uL (4.0-11.0)
[2017-05-21 04:45] LABS: INR - (THERAPEUTIC) 2.12 (0.92-1.07); PROTIME 22.4 SECONDS (9.8-11.4)
[2017-05-21 04:57] LABS: ALBUMIN 2.3 gm/dL (3.5-5.0); CALCIUM 7.6 mg/dL (8.5-10.5); CREATININE 1.7 mg/dL (0.6-1.3); PHOSPHORUS 2.7 mg/dL (2.5-4.9); POTASSIUM 3.9 mMol/L (3.7-5.1)
[2017-05-21 05:00] LABS: ANION GAP 9.9 (10.0-19.0)
[2017-05-21 05:15] LABS: ABSOLUTE NEUTROPHIL CT (ANC) 5.9 K/uL (1.4-9.0); BANDED NEUTROPHIL # 1.2 K/uL (0.0-0.1); BANDED NEUTROPHILS % 14 %; LYMPHOCYTE # 1.2 K/uL (0.8-4.0); LYMPHOCYTE % 14 %; MONOCYTE # 1.5 K/uL (0.0-1.0); SEGMENTED NEUTROPHIL # 4.7 K/uL (1.4-9.0); SEGMENTED NEUTROPHIL % 53 %
[2017-05-22 03:46] LABS: HEMOGLOBIN 9.1 g/dL (11.0-16.0); MCV 94.7 fl (83.0-98.0); MPV 11.3 fl (9.4-12.4); RDW-CV 15.9 % (11.9-14.6); WBC 10.6 K/uL (4.0-11.0)
[2017-05-22 03:47] LABS: HEMATOCRIT 28.5 % (33.0-50.0); MCH 30.2 pg (27.0-34.0); MCHC 31.9 gm/dL (32.0-36.5); PLATELET COUNT 291 K/uL (150-450); RBC 3.01 M/uL (3.50-5.50)
[2017-05-22 03:58] LABS: INR - (THERAPEUTIC) 2.54 (0.92-1.07); PROTIME 26.9 SECONDS (9.8-11.4)
[2017-05-22 04:57] LABS: ABSOLUTE NEUTROPHIL CT (ANC) 5.8 K/uL (1.4-9.0); BANDED NEUTROPHIL # 1.4 K/uL (0.0-0.1); BANDED NEUTROPHILS % 13 %; LYMPHOCYTE # 1.3 K/uL (0.8-4.0); LYMPHOCYTE % 12 %; MONOCYTE # 3.4 K/uL (0.0-1.0); SEGMENTED NEUTROPHIL # 4.5 K/uL (1.4-9.0); SEGMENTED NEUTROPHIL % 42 %
[2017-05-23 06:11] LABS: HEMATOCRIT 29.7 % (33.0-50.0); HEMOGLOBIN 9.2 g/dL (11.0-16.0); MCH 30.1 pg (27.0-34.0); MCV 97.1 fl (83.0-98.0); PLATELET COUNT 256 K/uL (150-450); RBC 3.06 M/uL (3.50-5.50); RDW-CV 15.9 % (11.9-14.6); WBC 11.1 K/uL (4.0-11.0)
[2017-05-23 06:21] LABS: PROTIME 20.2 SECONDS (9.8-11.4)
[2017-05-23 06:25] LABS: INR - (THERAPEUTIC) 1.91 (0.92-1.07)
[2017-05-23 06:53] LABS: ABSOLUTE NEUTROPHIL CT (ANC) 7.3 K/uL (1.4-9.0); BANDED NEUTROPHIL # 1.4 K/uL (0.0-0.1); BANDED NEUTROPHILS % 13 %; LYMPHOCYTE # 1.6 K/uL (0.8-4.0); LYMPHOCYTE % 14 %; MONOCYTE # 1.8 K/uL (0.0-1.0); SEGMENTED NEUTROPHIL # 5.9 K/uL (1.4-9.0); SEGMENTED NEUTROPHIL % 53 %
[2017-05-24 05:30] LABS: HEMATOCRIT 29.6 % (33.0-50.0); HEMOGLOBIN 9.5 g/dL (11.0-16.0); MCH 30.8 pg (27.0-34.0); MCHC 32.1 gm/dL (32.0-36.5); MCV 96.1 fl (83.0-98.0); MPV 11.3 fl (9.4-12.4); PLATELET COUNT 267 K/uL (150-450); RBC 3.08 M/uL (3.50-5.50); RDW-CV 15.7 % (11.9-14.6); WBC 12.3 K/uL (4.0-11.0)
[2017-05-24 05:35] LABS: INR - (THERAPEUTIC) 1.67 (0.92-1.07); PROTIME 17.6 SECONDS (9.8-11.4)
[2017-05-24 06:15] LABS: ABSOLUTE NEUTROPHIL CT (ANC) 6.2 K/uL (1.4-9.0); BANDED NEUTROPHIL # 2.5 K/uL (0.0-0.1); BANDED NEUTROPHILS % 20 %; LYMPHOCYTE # 1.6 K/uL (0.8-4.0); LYMPHOCYTE % 13 %; MONOCYTE # 4.7 K/uL (0.0-1.0); SEGMENTED NEUTROPHIL # 3.7 K/uL (1.4-9.0); SEGMENTED NEUTROPHIL % 30 %
[2017-05-25 05:32] LABS: HEMATOCRIT 28.5 % (33.0-50.0); HEMOGLOBIN 9.2 g/dL (11.0-16.0); MCH 30.8 pg (27.0-34.0); MCHC 32.3 gm/dL (32.0-36.5); MCV 95.3 fl (83.0-98.0); MPV 11.3 fl (9.4-12.4); PLATELET COUNT 283 K/uL (150-450); RBC 2.99 M/uL (3.50-5.50); RDW-CV 15.7 % (11.9-14.6); WBC 14.9 K/uL (4.0-11.0)
[2017-05-25 05:44] LABS: INR - (THERAPEUTIC) 1.48 (0.92-1.07); PROTIME 15.6 SECONDS (9.8-11.4)
[2017-05-25 05:49] LABS: ANION GAP 11.4 (10.0-19.0); CALCIUM 7.9 mg/dL (8.5-10.5); CREATININE 1.9 mg/dL (0.6-1.3); POTASSIUM 4.4 mMol/L (3.7-5.1)
[2017-05-25 06:04] LABS: ABSOLUTE NEUTROPHIL CT (ANC) 6.9 K/uL (1.4-9.0); BANDED NEUTROPHIL # 1.5 K/uL (0.0-0.1); BANDED NEUTROPHILS % 10 %; LYMPHOCYTE # 3.4 K/uL (0.8-4.0); LYMPHOCYTE % 23 %; MONOCYTE # 4.3 K/uL (0.0-1.0); SEGMENTED NEUTROPHIL # 5.4 K/uL (1.4-9.0); SEGMENTED NEUTROPHIL % 36 %
[2017-05-26 04:41] LABS: HEMATOCRIT 28.4 % (33.0-50.0); HEMOGLOBIN 9.1 g/dL (11.0-16.0); MCH 30.5 pg (27.0-34.0); MCV 95.3 fl (83.0-98.0); MPV 11.3 fl (9.4-12.4); PLATELET COUNT 322 K/uL (150-450); RBC 2.98 M/uL (3.50-5.50); RDW-CV 15.7 % (11.9-14.6)
[2017-05-26 04:49] LABS: INR - (THERAPEUTIC) 1.53 (0.92-1.07); PROTIME 16.1 SECONDS (9.8-11.4)
[2017-05-26 05:23] LABS: ABSOLUTE NEUTROPHIL CT (ANC) 4.9 K/uL (1.4-9.0); BANDED NEUTROPHILS % 8 %; LYMPHOCYTE # 2.5 K/uL (0.8-4.0); LYMPHOCYTE % 19 %; MONOCYTE # 4.9 K/uL (0.0-1.0); SEGMENTED NEUTROPHIL # 3.9 K/uL (1.4-9.0); SEGMENTED NEUTROPHIL % 30 %
[2017-05-27 02:29] LABS: BILIRUBIN URINE NEGATIVE (NEGATIVE); BLOOD URINE 150 /UL (NEGATIVE); COLOR URINE YELLOW (YELLOW); GLUCOSE URINE NEGATIVE (NEGATIVE); KETONE URINE NEGATIVE (NEGATIVE); LEUKOCYTES URINE 500 /UL (NEGATIVE); NITRITE URINE NEGATIVE (NEGATIVE); PROTEIN URINE 30 mg/dL (NEGATIVE); SPEC GRAVITY URINE 1.005 (1.003-1.035); TURBIDITY URINE CLEAR (CLEAR); UROBILINOGEN URINE NORMAL (NORMAL)
[2017-05-27 02:36] LABS: EPITHELIAL URINE 0-2 #/HPF (NEGATIVE); RBC URINE 20-50 #/HPF (NEGATIVE); WBC URINE 20-50 #/HPF (NEGATIVE)
[2017-05-27 02:37] LABS: BACTERIA URINE NEGATIVE (NEGATIVE)
[2017-05-27 05:36] LABS: HEMATOCRIT 24.9 % (33.0-50.0); MCV 96.5 fl (83.0-98.0); MPV 11.5 fl (9.4-12.4); RBC 2.58 M/uL (3.50-5.50); RDW-CV 15.6 % (11.9-14.6); WBC 8.5 K/uL (4.0-11.0)
[2017-05-27 05:37] LABS: HEMOGLOBIN 7.7 g/dL (11.0-16.0); MCH 29.8 pg (27.0-34.0); MCHC 30.9 gm/dL (32.0-36.5)
[2017-05-27 05:38] LABS: PLATELET COUNT 215 K/uL (150-450)
[2017-05-27 05:43] LABS: INR - (THERAPEUTIC) 1.73 (0.92-1.07); PROTIME 18.3 SECONDS (9.8-11.4)
[2017-05-27 06:00] LABS: ALBUMIN 2.7 gm/dL (3.5-5.0); CREATININE 1.8 mg/dL (0.6-1.3); MAGNESIUM 2.4 mg/dL (1.8-2.6); POTASSIUM 4.5 mMol/L (3.7-5.1); TOTAL PROTEIN 5.8 g/dL (6.0-8.4)
[2017-05-27 06:02] LABS: ANION GAP 13.5 (10.0-19.0); TOTAL BILIRUBIN 0.4 mg/dL (0.0-1.5)
[2017-05-27 06:31] LABS: ABSOLUTE NEUTROPHIL CT (ANC) 3.7 K/uL (1.4-9.0); BANDED NEUTROPHIL # 0.9 K/uL (0.0-0.1); BANDED NEUTROPHILS % 11 %; LYMPHOCYTE # 0.9 K/uL (0.8-4.0); LYMPHOCYTE % 10 %; MONOCYTE # 4.1 K/uL (0.0-1.0); SEGMENTED NEUTROPHIL # 2.7 K/uL (1.4-9.0); SEGMENTED NEUTROPHIL % 32 %
[2017-05-28 06:03] LABS: INR - (THERAPEUTIC) 1.89 (0.92-1.07)
[2017-05-29 03:23] LABS: HEMATOCRIT 24.4 % (33.0-50.0); MCH 29.8 pg (27.0-34.0); MCHC 30.7 gm/dL (32.0-36.5); MCV 96.8 fl (83.0-98.0); MPV 11.4 fl (9.4-12.4); PLATELET COUNT 211 K/uL (150-450); RBC 2.52 M/uL (3.50-5.50); RDW-CV 15.4 % (11.9-14.6); WBC 8.9 K/uL (4.0-11.0)
[2017-05-29 03:26] LABS: HEMOGLOBIN 7.5 g/dL (11.0-16.0)
[2017-05-29 03:30] LABS: PROTIME 21.1 SECONDS (9.8-11.4)
[2017-05-29 03:35] LABS: ANION GAP 10.7 (10.0-19.0); CALCIUM 7.7 mg/dL (8.5-10.5); CREATININE 1.8 mg/dL (0.6-1.3); POTASSIUM 4.7 mMol/L (3.7-5.1)
[2017-05-29 03:54] LABS: ABSOLUTE NEUTROPHIL CT (ANC) 3.8 K/uL (1.4-9.0); BANDED NEUTROPHIL # 1.2 K/uL (0.0-0.1); BANDED NEUTROPHILS % 13 %; LYMPHOCYTE # 2.1 K/uL (0.8-4.0); LYMPHOCYTE % 24 %; MONOCYTE # 2.9 K/uL (0.0-1.0); SEGMENTED NEUTROPHIL # 2.7 K/uL (1.4-9.0); SEGMENTED NEUTROPHIL % 30 %
[2017-05-30 04:42] LABS: HEMATOCRIT 26.2 % (33.0-50.0); HEMOGLOBIN 8.1 g/dL (11.0-16.0); MCHC 30.9 gm/dL (32.0-36.5); MPV 11.6 fl (9.4-12.4); PLATELET COUNT 232 K/uL (150-450); RDW-CV 15.4 % (11.9-14.6)
[2017-05-30 04:50] LABS: INR - (THERAPEUTIC) 2.09 (0.92-1.07); PROTIME 22.1 SECONDS (9.8-11.4)
[2017-05-30 04:57] LABS: ALBUMIN 2.6 gm/dL (3.5-5.0); CREATININE 2.2 mg/dL (0.6-1.3); PHOSPHORUS 4.8 mg/dL (2.5-4.9); POTASSIUM 5.2 mMol/L (3.7-5.1)
[2017-05-30 04:59] LABS: ANION GAP 11.2 (10.0-19.0); MAGNESIUM 2.7 mg/dL (1.8-2.6)
[2017-05-30 05:25] LABS: ABSOLUTE NEUTROPHIL CT (ANC) 2.2 K/uL (1.4-9.0); BANDED NEUTROPHIL # 0.9 K/uL (0.0-0.1); BANDED NEUTROPHILS % 11 %; LYMPHOCYTE # 1.2 K/uL (0.8-4.0); LYMPHOCYTE % 15 %; MONOCYTE # 4.6 K/uL (0.0-1.0); SEGMENTED NEUTROPHIL # 1.4 K/uL (1.4-9.0); SEGMENTED NEUTROPHIL % 17 %
== END 2017-05-30 15:40 | DRG 469 ==
LOC: GACC 13:28 → GICU 15:20 → G3N 15:20 → GICU 22:01 → GPCU 05-20 02:54
PROVIDERS: Emergency Medicine; Family Medicine; Internal Medicine; Internal Medicine Interventional Cardiology; Nurse Practitioner Family; Physician Assistant; ADMIT Internal Medicine
PROC: B246ZZZ Ultrasonography of Right and Left Heart (ICD-10-PCS; principal; 2017-05-12)
PROC: 3E073KZ Introduction of Other Diagnostic Substance into Coronary Artery, Percutaneous Approach (ICD-10-PCS; principal; 2017-05-12)
PROC: 4A12XM4 Monitoring of Cardiac Stress, External Approach (ICD-10-PCS; principal; 2017-05-12)
PROC: 0SRS019 Replacement of Left Hip Joint, Femoral Surface with Metal Synthetic Substitute, Cemented, Open Approach (ICD-10-PCS; 2017-05-13)
PROC: F00ZJWZ Instrumental Swallowing and Oral Function Assessment using Swallowing Equipment (ICD-10-PCS; 2017-05-13)
PROC: 30233N1 Transfusion of Nonautologous Red Blood Cells into Peripheral Vein, Percutaneous Approach (ICD-10-PCS; 2017-05-15)
DX: S72.002A Fracture of unspecified part of neck of left femur, initial encounter for closed fracture (principal); G93.40 Encephalopathy, unspecified; J69.0 Pneumonitis due to inhalation of food and vomit; N17.9 Acute kidney failure, unspecified; E44.0 Moderate protein-calorie malnutrition; I48.2 Chronic atrial fibrillation; N39.0 Urinary tract infection, site not specified; D62 Acute posthemorrhagic anemia; E83.39 Other disorders of phosphorus metabolism; I12.9 Hypertensive chronic kidney disease with stage 1 through stage 4 chronic kidney disease, or unspecified chronic kidney disease; F05 Delirium due to known physiological condition; Z68.1 Body mass index [BMI] 19.9 or less, adult; W18.30XA Fall on same level, unspecified, initial encounter; E87.70 Fluid overload, unspecified; N18.3 Chronic kidney disease, stage 3 (moderate); Z66 Do not resuscitate; G30.9 Alzheimer's disease, unspecified; F02.80 Dementia in other diseases classified elsewhere, unspecified severity, without behavioral disturbance, psychotic disturbance, mood disturbance, and anxiety; N40.1 Benign prostatic hyperplasia with lower urinary tract symptoms; R13.10 Dysphagia, unspecified; B96.5 Pseudomonas (aeruginosa) (mallei) (pseudomallei) as the cause of diseases classified elsewhere
CPT/HCPCS: A9500; C1776; C8929; J0690; J1650; J1940; J1956; J2270; J2543; J2785; J3010; J3480; J7040; J7042; J7050; J7120; P9016; P9047; Q9957

== ENCOUNTER → 2017-05-11 | Outpatient (CLI) | payer MEDICARE, OTHER | END | disposition disaster alternative care site (69) | LOC: GAMB 13:08 | DX: S79.912A Unspecified injury of left hip, initial encounter (principal); M25.552 Pain in left hip; Z79.01 Long term (current) use of anticoagulants; Z88.8 Allergy status to other drugs, medicaments and biological substances; W19.XXXA Unspecified fall, initial encounter | CPT/HCPCS: A0425; A0427; J3010 ==

== ENCOUNTER → 2017-05-15 | Outpatient (CLI) | payer MEDICARE, OTHER ==
[~2017-05-15] MED LIST changes: +BOOST BREEZE237 ML PO; +IMODIUM2 MG PO; +OMNICEF 300MG300 MG PO
== END ==
DX: I48.91 Unspecified atrial fibrillation (principal); R19.7 Diarrhea, unspecified